=== PATIENT | female | born 1990 | race Caucasian/White ===

== ENCOUNTER 2016-06-21 15:55 | Inpatient (IN) | payer MEDICAID ==
[~2016-06-21] VITALS: Ht 165.1 cm; Wt 75.0 kg
[2016-06-21] MEDS ORDERED: LACTATED RINGERS 1,000 ML IV SCH ×2 (15:58→16:00)
[2016-06-21] MEDS ORDERED: OXYTOCIN 30U/ 0.9% NaCL 500ML 500 ML IV SCH (15:58)
[2016-06-21] MEDS ORDERED: CEFAZOLIN PMX 1GM/50ML 50 ML IVPB ONE (16:00)
[2016-06-21] MEDS ORDERED: LACTATED RINGERS 1,000 ML IVBOLUS ONE (16:00)
[2016-06-21] MEDS ORDERED: SODIUM CITRATE/CITRIC ACID 30 ML UDC PO ONE (16:00)
[2016-06-21 16:38] LABS: ASPARTATE AMINO TRANSFERASE 39 U/L (15-37); BLOOD UREA NITROGEN 9 mg/dL (7-18)
[2016-06-21] MEDS ORDERED: OXYTOCIN 30U/ 0.9% NaCL 500ML 500 ML ONE ×2 (17:14→19:43)
[2016-06-21] MEDS ORDERED: SODIUM CITRATE/CITRIC ACID 30 ML UDC ONE (17:14)
[2016-06-21] MEDS ORDERED: METOCLOPRAMIDE 5 MG/ML, 2ML ONE (17:14)
[2016-06-21] MEDS ORDERED: NEWBORN KIT ONE (17:47)
[2016-06-21] MEDS ORDERED: morphine SULFATE/PF 0.5 MG/ML, 10ML ONE (18:04)
[2016-06-21] MEDS ORDERED: PHENYLEPHRINE 10 MG/ML ONE (18:15)
[2016-06-21] MEDS ORDERED: CEFAZOLIN 1,000 MG ONE (18:15)
[2016-06-21] MEDS ORDERED: EPHEDRINE 50 MG/ML, 1ML ONE (18:15)
[2016-06-21] MEDS ORDERED: ONDANSETRON 2MG/ML, 2ML ONE (18:15)
[2016-06-21] MEDS ORDERED: METOCLOPRAMIDE 5 MG/ML, 2ML IV ONE (18:30)
[2016-06-21] MEDS: LACTATED RINGERS 1,000 ML IV SCH (19:30)
[2016-06-21] MEDS ORDERED: BISACODYL 10 MG SUPP PR PRN (19:30)
[2016-06-21] MEDS: OXYTOCIN 30U/ 0.9% NaCL 500ML 500 ML IV SCH (19:30)
[2016-06-21] MEDS ORDERED: METHYLERGONOVINE 0.2 MG/ML IM PRN (19:30)
[2016-06-21] MEDS ORDERED: MEASLES,MUMPS&RUBELLA VACC/PF 0.5 ML SQ-VACC PRN (19:30)
[2016-06-21] MEDS ORDERED: SIMETHICONE 80 MG CHEW TAB PO PRN (19:30)
[2016-06-21] MEDS ORDERED: METOCLOPRAMIDE 5 MG/ML, 2ML IV PRN (19:30)
[2016-06-21 20:45] VITALS: BP 114/67
[2016-06-21 21:15] VITALS: BP 124/74
[2016-06-21 21:45] VITALS: BP 111/58
[2016-06-21] MEDS ORDERED: DIPHENHYDRAMINE 50 MG/ML, 1ML IVPush PRN (22:30)
[2016-06-21] MEDS ORDERED: KETOROLAC 30 MG/1 ML IM ONE (23:00)
[2016-06-22] VITALS: BP 101/61
[2016-06-22] MEDS: LACTATED RINGERS 1,000 ML IV SCH ×6 (03:30→19:30)
[2016-06-22 04:00] VITALS: BP 114/60
[2016-06-22] MEDS: OXYTOCIN 30U/ 0.9% NaCL 500ML 500 ML IV SCH ×2 (05:30→15:30)
[2016-06-22] MEDS ORDERED: DIPHENHYDRAMINE 50 MG/ML, 1ML IVPush ONE (06:00)
[2016-06-22 07:50] VITALS: BP 98/55
[2016-06-22] MEDS ORDERED: DIPHENHYDRAMINE 50 MG CAPSULE PO PRN (08:00)
[2016-06-22] MEDS: PRENATAL VIT/IRON/FA 1 EACH TABLET PO SCH (08:54)
[2016-06-22] MEDS: IBUPROFEN 600 MG TABLET PO PRN ×2 (08:54→23:25)
[2016-06-22] MEDS: DOCUSATE 100 MG CAPSULE PO PRN ×2 (08:54→19:36)
[2016-06-22] MEDS: OXYcodone/APAP 5/325MG TABLET PO PRN ×2 (08:54→13:58)
[2016-06-22 12:00] VITALS: BP 98/51
[2016-06-22] MEDS: OXYcodone IR 5MG TABLET PO PRN ×2 (19:36→23:25)
[2016-06-22 22:30] VITALS: BP 115/64
[2016-06-23] MEDS: LACTATED RINGERS 1,000 ML IV SCH ×5 (01:30→19:30)
[2016-06-23] MEDS: OXYTOCIN 30U/ 0.9% NaCL 500ML 500 ML IV SCH ×2 (01:30→03:48)
[2016-06-23] MEDS: IBUPROFEN 600 MG TABLET PO PRN ×4 (06:13→22:47)
[2016-06-23] MEDS: OXYcodone IR 5MG TABLET PO PRN ×4 (06:13→22:47)
[2016-06-23 06:50] VITALS: BP 106/59
[2016-06-23] MEDS: PRENATAL VIT/IRON/FA 1 EACH TABLET PO SCH (08:26)
[2016-06-23] MEDS: DOCUSATE 100 MG CAPSULE PO PRN ×2 (08:26→22:47)
[2016-06-23] MEDS ORDERED: hydrOXyzine 10MG TABLET PO PRN (11:30)
[2016-06-23 13:20] VITALS: BP 110/66
[2016-06-23 19:29] VITALS: BP 114/69
[2016-06-24] MEDS: OXYcodone IR 5MG TABLET PO PRN ×4 (03:07→18:32)
[2016-06-24] MEDS: LACTATED RINGERS 1,000 ML IV SCH ×5 (03:30→19:30)
[2016-06-24] MEDS: IBUPROFEN 600 MG TABLET PO PRN ×3 (06:09→18:32)
[2016-06-24 06:30] VITALS: BP 122/71
[2016-06-24] MEDS: OXYTOCIN 30U/ 0.9% NaCL 500ML 500 ML IV SCH ×2 (07:30→17:30)
[2016-06-24] MEDS: PRENATAL VIT/IRON/FA 1 EACH TABLET PO SCH (09:38)
[2016-06-24] MEDS: DOCUSATE 100 MG CAPSULE PO PRN (09:38)
[2016-06-24 19:29] VITALS: BP 100/65
[2016-06-25] MEDS: IBUPROFEN 600 MG TABLET PO PRN ×3 (01:10→14:01)
[2016-06-25] MEDS: OXYcodone IR 5MG TABLET PO PRN ×3 (01:11→11:58)
[2016-06-25] MEDS: LACTATED RINGERS 1,000 ML IV SCH ×4 (03:30→13:30)
[2016-06-25] MEDS: OXYTOCIN 30U/ 0.9% NaCL 500ML 500 ML IV SCH ×2 (03:30→13:30)
[2016-06-25 08:00] VITALS: BP 113/65
[2016-06-25] MEDS ORDERED: IBUP-1222 PO (11:33)
[2016-06-25] MEDS ORDERED: OXYC10TA6 PO (11:35)
[2016-06-25] MEDS ORDERED: DOCU-30 PO (11:35)
== END 2016-06-25 16:01 | disposition home or self-care (01) | DRG 765 ==
LOC: LDOP 15:55 → LDIP 15:56 → 2NW 20:27
PROVIDERS: ADMIT Obstetrics & Gynecology Maternal & Fetal Medicine; ATTEND Obstetrics & Gynecology Maternal & Fetal Medicine
PROC: 10D00Z1 Extraction of Products of Conception, Low, Open Approach (ICD-10-PCS; principal; 2016-06-21)
PROC: 0WQF0ZZ Repair Abdominal Wall, Open Approach (ICD-10-PCS; 2016-06-21)
DX: O26.62 Liver and biliary tract disorders in childbirth (principal); K83.1 Obstruction of bile duct; O34.211 Maternal care for low transverse scar from previous cesarean delivery; K43.9 Ventral hernia without obstruction or gangrene; O99.62 Diseases of the digestive system complicating childbirth; Z37.0 Single live birth; Z3A.38 38 weeks gestation of pregnancy; Z87.59 Personal history of other complications of pregnancy, childbirth and the puerperium
CPT/HCPCS: 36415; 80053; 85025; 86850; 86900; J0690; J2274; J2405; J1200; J2370; J2590; J2765; J7120